=== PATIENT | male | born 1985 | race Caucasian/White ===

== ENCOUNTER 2025-01-22 09:05 | Outpatient (REF) | payer BC, SELFPAY ==
[2025-01-22 13:33] LABS: MANUAL DIFF FLAG NO
[2025-01-22 13:38] LABS: Appearance Urine Turbid; Glucose Urine UA Negative (Negative); PH 5.5 (5.0-9.0); Specific Gravity - Urine >= 1.030 (1.005-1.025)
[2025-01-22 13:42] LABS: Hematocrit 49.5 % (42.0-52.0); Hemoglobin 16.4 g/dl (14.0-18.0); Imm Gran Abs Auto 0.02 X10*3/uL (0.00-0.03); Imm Gran Pct Auto 0.3 % (0.0-0.4); Lymphocytes Absolute Auto 1.5 X10*3/uL (1.2-4.9); Mean Corpuscular HGB Conc 33.1 g/dl (31.0-36.0); Mean Corpuscular Hemoglobin 29.7 pg (27.0-33.0); Mean Corpuscular Volume 89.5 fL (80.0-98.0); NRBC Abs Auto 0.000 X10*3/uL (0.0-0.012); NRBC Pct Auto 0.0 /100WBC (0.0-0.2); Platelet Count 215 X10*3/uL (160-400); Red Blood Count 5.53 X10*6/uL (4.60-5.80); White Blood Count 5.8 X10*3/uL (4.8-10.8)
[2025-01-22 14:12] LABS: Alanine Aminotransferase 23 U/L (0-40); Albumin Level 5.0 g/dL (3.5-5.0); Alkaline Phosphatase 79 U/L (39-117); Anion Gap 12 (12-20); Aspartate Amino Transferase 28 U/L (5-37); Blood Urea Nitrogen 18 mg/dL (9-16); Calcium 9.5 mg/dL (8.4-10.2); Carbon Dioxide 30 mmol/L (22-29); Chloride 105 mmol/L (96-108); Cholesterol 199 mg/dL (<200); Estimated Glomerular Filt Rate > 60; HDL Cholesterol 47 mg/dL (>40); Magnesium 2.1 mg/dL (1.6-2.6); Potassium 4.0 mmol/L (3.3-5.1); Sodium 143 mmol/L (135-145); Total Protein 7.5 g/dL (6.5-8.0); Triglycerides 150 mg/dL (<150)
[2025-01-22 14:28] LABS: Folate 11.6 ng/mL (> or = 4.0); Vitamin B12 378 pg/mL (200-900)
[2025-01-22 15:20] LABS: CT PCR Urine NOT DETECTED (Not Detect.); NG PCR Urine NOT DETECTED (Not Detect.)
[2025-01-23 04:24] LABS: Syphilis Screen Nonreactive (Nonreactive)
[2025-01-23 05:15] LABS: HBS Num1 7.26 mIU/mL (0-7.99); HBsAGNum1 0.49 S/CO (0.00-0.99); HIV Num 1 0.08 S/CO (0.00-0.99); Hepatitis B Surface Antigen Negative (Negative); ~HepC Num1 0.09 S/CO (0.00-0.79); ~Hepatitis B Surface Antibody NONREACTIVE (Nonreactive); ~Hepatitis C Antibody Nonreactive (Nonreactive)
[2025-01-26 09:38] LABS: Vitamin D 25-OH, D2 <4 ng/mL; Vitamin D 25-OH, D3 22 ng/mL; Vitamin D 25-OH, Total 22 ng/mL (30-100)
== END 2025-01-22 09:06 | disposition home or self-care (01) ==
LOC: HO.HKASLDS 09:05
PROVIDERS: PCP Student in an Organized Health Care Education/Training Program; Visit Provider Student in an Organized Health Care Education/Training Program
DX: Z13.9 Encounter for screening, unspecified (principal); J45.20 Mild intermittent asthma, uncomplicated; H61.22 Impacted cerumen, left ear; Z79.899 Other long term (current) drug therapy
CPT/HCPCS: 80053; 80061; 81003; 82306; 82607; 82746; 83036; 83735; 84443; 85025; 86706; 86780; 86803; 87340; 87389; 87491; 87591; 96127

== ENCOUNTER 2025-01-22 09:05 | Outpatient (AMB) | payer BC, SELFPAY ==
--- NOTE | 2025-01-22 09:07 | A.OFFPC_ITS ---
Vital Signs 01/22/25 09:11 Height 5 ft 5.75 in Weight 152 lb 6 oz BMI 24.8 BP 111/69 Blood Pressure Location Rt brachial Position Sitting Respiration 16 Pulse 61 Pulse Source Pulse Oximeter Temp 97.3 F Temp Source Oral Pulse Oximetry (%) 98 Oxygen Delivery Method Room Air Intake Visit Reasons: [employer]- LUE Discomfort, Elbow specific Accompanied by: Self / Same As Patient Allergies No Known Allergies Allergy (Verified 01/22/25 09:07) Medication List - Last Reconciled 01/22/25 by Babak Lawson MD carbamide peroxide 6.5% (Debrox) 5 drps otic (ears) Q12H 4 days Tobacco use date assessed: 01/22/25 Dental Screening Dental Screen Date: 01/22/25 Did you have a dental visit in the last 12 months?: Yes Did you have a dental problem in the last 6 months where you did not have access to dental care?: No Was dental information given to patient?: Patient has dentist HPI HPI Comments History of Present Illness Details History of Present Illness The patient is a 39 year old male presenting to establish primary care. Adult Health Maintenance: The patient is establishing care with a primary care provider for the first . He is interested in understanding which tests, screenings, and vaccinations are recommended for him now and in the future. He notes it has been over 10 years since his last tetanus vaccination. History of left elbow fracture: The patient has a history of a left elbow fracture as a child, which was treated with a cast. He sustained another fracture to the same elbow in May of this year, which was initially diagnosed as a fracture-dislocation. He underwent surgery, during which the surgeon discovered that the dislocation was chronic, likely present since childhood, based on wear and cartilage buildup. A second surgery was performed in September to remove scar tissue. History of Childhood Asthma: The patient had asthma as a child and used an inhaler. He has been asymptomatic since his early teenage years and has never been hospitalized for asthma. Family History of Malignancy: Patient reports a significant family history of cancer. His mother from breast cancer when he was [age] years old. His father from leukemia in 2012 at the age of 63. Cerumen Impaction: The patient reports a sensation of his left ear feeling blocked. Surgical History: - Left elbow surgery for fracture in May il - Left elbow surgery for scar tissue rem oval in September - Sutures for right arm laceration (appr ox. 2009) Medications: - Post-surgery (May): Took one pill of oxycodone on the day of surgery, followed by Tylenol. - Post-surgery (September): Took Tylenol an d naproxen. Social History: - Employment: Works at [employer] in [place], making food-related paper products. - Substance Use: Denies history of smoki ng or recreational drug use. - Family Status: Reports being single wi th no children. - Sleep: Reports being a light sleeper a nd sometimes wakes up in the middle of the night but is able to go back to sleep. He sometimes feels tired in the morning. Family History: - Mother: from breast cancer wh en the patient was [age]. - Father: from leukemia in 2012 at age 63. Diagnostic Results: - X-ray (May): Showed left elbow fract ure and dislocation. Past Medical History - Left elbow fracture as a child - Left elbow fracture with chronic dislo cation in May, status post two surgeries - History of childhood asthma, resolved - Right arm laceration requiring stitche s (approx. 2009) - Hospitalizations: For two left elbow s urgeries. Health Maintenance - Vaccinations: Patient is due for a Tda p vaccine, which has been offered. - A flu vaccine has also been offered. - Lab Screenings: A baseline, comprehens kendra panel of labs has been ordered, including a complete blood count, comprehensive metabolic panel, hemoglobin A1c, lipid panel, hepatitis B, hepatitis C, HIV, syphilis, B12, folate, vitamin D, thyroid panel, and urinalysis. - Cancer Screening: The patient was advi sed that at this time, he does not meet criteria for cancer screening beyond what is included in the baseline labs (e.g., CBC for leukemia). - He was informed that colon cancer scre ening begins at age 45. [facility] Medical History (Updated 01/22/25 @ 10:52 by Babak Lawson MD) Cerumen impaction Mild intermittent asthma Family History (Updated 01/22/25 @ 09:15 by Yinka Reyna MA) Father Leukemia Asthma Mother Breast cancer Social History Housing: House Patient Tobacco Use Status: Never used Tobacco service: No Current occupational status: employed Cognitive needs: No Hearing needs: No Vision needs: Yes (rx glasses) Questionnaire PHQ-9 Over the last 2 weeks, how often have you been bothered by any of the following problems? 1. Little interest or pleasure in doing things: not at all 2. Feeling down, depressed, or hopeless: not at all 3. Trouble falling or staying asleep, or sleeping too much: several days 4. Feeling tired or having little energy: not at all 5. Poor appetite or overeating: not at all 6. Feeling bad about yourself - or that you are a failure or have let yourself or your family down: not at all 7. Trouble concentrating on things, such as reading the newspaper or watching television: not at all 8. Moving or speaking so slowly that other people could have noticed. Or the opposite - being so fidgety or restless that you have been moving around a lot more than usual: not at all 9. Thoughts that you would be better off or of hurting yourself in some way: not at all Total score: 1 Depression Screening Interpretation: Negative Depression Screening Done: Yes Source: Developed by Drs. Sage Lucero, Coni Otero, Jj Powell and colleagues, with an educational lynsey from [employer]. Thrive Questionnaire I am a: Patient What is your living situation today?: I have a steady place to live Within the past 12 months, did the food you bought not last and you didn't have the money to get more?: Never true Within the past 12 months, did you worry whether your food would run out before you got money to buy more?: Never true Do you have trouble paying for medicines?: I choose not to answer this question Do you have trouble getting transportation to medical appointments?: No Do you have trouble paying your heating and electricity bill?: I choose not to answer this question Do you have trouble taking care of your child, family member or friend?: No Do you have trouble with day-to-day activities such as bathing, preparing meals, shopping, managing finances, etc.?: No Are you currently unemployed and looking for a job?: No Are you interested in more education?: I choose not to answer this question Please select the resources that you would like help with: None Currently or been in a relationship where the following occur: No concerns reported THRIVE Score: 0 AUDIT C Alcohol Use Questionnaire (AUDIT-C) 1. How often do you have a drink containing alcohol?: Monthly or less 2. How many drinks containing alcohol do you have on a typical day when you are drinking?: 1 or 2 3. How often do you have six or more drinks on one occasion?: Never Total Score: 1 MANINDER-7 AMB Questionnaire MANINDER-7 Feeling nervous, anxious, or on edge: 0 = Not at all Not being able to stop or control worryin = Not at all Worrying too much about different things: 0 = Not at all Trouble relaxin = Not at all Being so restless that it is hard to sit still: 0 = Not at all Becoming easily annoyed or irritable: 0 = Not at all Feeling afraid as if something awful might happen: 0 = Not at all Total MANINDER-7 score (0-4 normal; 5-9 mild; 10-14 moderate; 15-21 severe): 0 Source: Developed by Drs. Sage Lucero, Coni Otero, Jj Powell and colleagues, with an educational lynsey from [employer]. Review of Systems Narrative Review of Systems - Constitutional: Denies fever, chills. Reports being a light sleeper and sometimes waking up not feeling refreshed. - ENT: Reports sensation of blockage in his left ear. - Genitourinary: Denies dysuria or other issues with urination. - Gastrointestinal: Denies issues with bowel movements. - Respiratory: Denies current asthma symptoms. 10-point ROS reviewed and negative except as noted in HPI Physical exam (Primary Care) Vital Signs: Last Vital Signs Temp 97.3 F 01/22/25 09:11 Pulse 61 01/22/25 09:11 Resp 16 01/22/25 09:11 BP 111/69 01/22/25 09:11 Pulse Ox 98 01/22/25 09:11 Oxygen Delivery Method Room Air 01/22/25 09:11 BMI result Body Mass Index 24.8 Tobacco/Smoking Status: Tobacco use Status Tobacco use date assessed 01/22/25 01/22/25 09:09 Patient Tobacco Use Status Never used Tobacco 01/22/25 09:09 PHQ-9: PHQ-9 Score PHQ-9: Total score 1 01/22/25 09:09 Depression Screening Interpretation: Negative Currently or been in a relationship where the following occur: No concerns reported Narrative Physical Exam General: Well-appearing, in no acute distress. Vital signs: Within normal limits. Blood pressure is good. Pulse is good. Body mass index is good. HEENT: Normocephalic, atraumatic. PERRLA, EOMI. Conjunctiva clear, sclera anicteric. Oropharynx clear, mucous membranes moist. TMs intact bilaterally. Left ear blocked with earwax. Neck: Supple, no lymphadenopathy, no thyromegaly, no JVD or carotid bruits. Cardiovascular: RRR, normal S1/S2, no murmurs, rubs, or gallops. Peripheral pulses 2+ and symmetric. No edema. Respiratory: Lungs clear to auscultation bilaterally, no wheezes, rales, or rhonchi. Normal effort. Abdomen: Soft, non-tender, non-distended. Normoactive bowel sounds. No hepatosplenomegaly, no masses. MSK: Full range of motion, no joint swelling or deformity. Normal gait. History of left elbow fracture and dislocation with surgeries in May and September. Skin: Warm, dry, intact. No rashes, lesions, or pallor. History of right arm laceration with stitches. Neuro: Alert and oriented x3. Cranial nerves II-XII intact. Strength 5/5 throughout. Sensation intact. Reflexes 2+ symmetric. Normal coordination and gait. Psych: Appropriate mood and affect. Normal judgment and insight. Coding Level of Care Code New Pt Level 4 (81083) Add On Problem Visit Only Diagnoses Mild intermittent asthma J45.20 Cerumen impaction H61.20 Assessment & Plan Assessment & Plan (1) Mild intermittent asthma: Code(s): J45.20 - Mild intermittent asthma, uncomplicated Category: Medical (2) Cerumen impaction: Code(s): H61.20 - Impacted cerumen, unspecified ear Category: Medical Plan Consent Patient was informed and verbally consented to the use of an ambient scribe for clinic note documentation during this visit. Plan 1. Adult Health Maintenance - Administer Tdap and flu vaccinations today if the patient consents. - Plan for comprehensive baseline laboratory studies, including CBC, CMP, HbA1c, lipid panel, hepatitis B/C serologies, HIV, syphilis screen, vitamin B12, folate, vitamin D, and TSH, with a urinalysis. - Discussed that routine cancer antigen marker testing is not indicated at this time as the patient does not meet screening criteria and is asymptomatic. - The patient was informed that the CBC can help screen for conditions like leukemia. - Advised that colon cancer screening will begin at age 45. - Schedule a follow-up appointment in two weeks to review lab results. 2. Cerumen Impaction, Bilateral - Prescribed ear drops to be used 5 drops in each ear for 4-5 days to help soften the cerumen. - Plan to re-evaluate at the follow-up visit and perform irrigation if the impaction persists. Discussion Notes I met with the patient, a 39-year-old male, for a new patient visit to establish care. We discussed his desire for guidance on preventive health screenings and vaccinations. His vital signs and general physical exam were unremarkable, except for bilateral cerumen impaction. I explained that given his age and lack of risk factors, extensive cancer screening is not currently indicated, though his family history was noted. I informed him that some of the baseline labs, such as the complete blood count, can help detect certain conditions like leukemia. We agreed on a comprehensive set of baseline lab tests to get a picture of his overall health. For the blocked ears, I prescribed drops to soften the wax and will reassess at his next visit for possible irrigation. I also offered the Tdap and flu vaccines. The patient agreed to follow up in two weeks to discuss all results and next steps. Patient Instructions - Place 5 drops in each ear for 4 days to help break up the earwax. I have sent this prescription to your [facility] pharmacy. - You can get your lab work done here in the clinic today; you do not need to be fasting. - You can get your Tdap (tetanus) and flu shot today if you would like. - Please schedule a follow-up appointment in two weeks to review your lab results. - You will receive a visit summary when you check out today that will list the tests that were ordered. - Screening for colon cancer is recommended to start at age 45. Medical Decision Making The patient is a 39-year-old male with no significant active medical issues presenting for a new patient visit to establish primary care. His main goals are to understand his current health status and establish a plan for preventive care. The primary complaint today is a sensation of blocked ears, which on exam is consistent with bilateral cerumen impaction. Given his age and the fact that he is establishing care, a comprehensive baseline laboratory panel is warranted to screen for common chronic conditions and establish reference points for future comparison. Although the patient is concerned about cancer due to a strong family history (mother with breast cancer, father with leukemia), he is asymptomatic and does not meet current USPSTF guidelines for specific cancer screenings beyond routine lab work, such as a CBC which can give insight into hematologic malignancies. I advised him that colon cancer screening would begin at age 45. The plan is to start with conservative management for the cerumen impaction using cerumenolytic drops and reassess for irrigation at follow-up. We will update his vaccinations with Tdap and flu. The overarching goal is to address his immediate concerns, perform appropriate age-related health maintenance, and establish a therapeutic relationship, with a plan to review all findings and address any abnormalities at a two-week follow-up visit. Total Time Statement 30 min Total time spent caring for the patient today includes pre-visit chart review, documentation, review of laboratory and diagnostic imaging results, medication reconciliation, medically necessary evaluation, counseling on diagnoses, care coordination, ordering appropriate tests and medications, review of tests performed by other providers, reporting test results to the patient, and commun ication with other healthcare providers. Orders: Orders Hepatitis C Antibody Today Z13.9 - Encounter for screening, unspecified HIV Ab/Ag Today Z13.9 - Encounter for screening, unspecified Lipid Panel Today Z13.9 - Encounter for screening, unspecified Vitamin B12 and Folate Today Z13.9 - Encounter for screening, unspecified Vitamin D 25-OH (D2 and D3) Today Z13.9 - Encounter for screening, unspecified Complete Blood Count Auto Diff Today Z13.9 - Encounter for screening, unspecified Hepatitis B Surface Antigen Today Z13.9 - Encounter for screening, unspecified Syphilis Screen Today Z13.9 - Encounter for screening, unspecified Comprehensive Met. Panel Today Z13.9 - Encounter for screening, unspecified TSH reflex Free T4 Today Z13.9 - Encounter for screening, unspecified CT NG by PCR Urine Today Z13.9 - Encounter for screening, unspecified UA CC w/rflx Micro + Cult Today Z13.9 - Encounter for screening, unspecified Hemoglobin A1c Today Z13.9 - Encounter for screening, unspecified Magnesium Today Z13.9 - Encounter for screening, unspecified Hepatitis B Surface Antibody Today Z13.9 - Encounter for screening, unspecified Medications: New carbamide peroxide 6.5% (Debrox) 5 drps otic (ears) Q12H 15 mL 0RF 4 days
[2025-01-22 09:11] VITALS: BP 111/69; PULSE 61; RESP 16; TEMP 36.3; O2SAT 98; BMI 24.8
== END 2025-01-22 09:42 | disposition home or self-care (01) ==
LOC: HO.HMCFMS 09:06
PROVIDERS: Visit Provider Student in an Organized Health Care Education/Training Program
DX: J45.20 Mild intermittent asthma, uncomplicated (principal); H61.20 Impacted cerumen, unspecified ear